=== PATIENT | female | born 1995 | race Caucasian/White ===

== ENCOUNTER 2017-03-28 23:18 | Emergency (ER) | payer BC ==
[2017-03-29 00:26] LABS: Urine Bacteria Absent (Absent); Urine Bilirubin 1+ (Negative); Urine Glucose Negative (Negative); Urine Nitrite Negative (Negative)
[2017-03-29] MEDS ORDERED: Ketorolac INJ* 30 MG/ML 1 ML VIAL IV PUSH ONE (01:47)
[2017-03-29] MEDS ORDERED: NS 0.9% 1000 ML* 1,000 ML IV ONE (01:48)
[2017-03-29] MEDS ORDERED: Ondansetron INJ* 2 MG/ML VIAL IV ONE (01:48)
[2017-03-29 02:23] LABS: Hematocrit 37 % (35-47); Hemoglobin 12.9 g/dl (12.0-16.0); Mean Corpuscular HGB Conc 34 g/dl (31-36); Mean Corpuscular Hemoglobin 31 pg (27-31); Mean Corpuscular Volume 90 fL (80-97); Mean Platelet Volume 9 um3 (7.4-10.4); Red Blood Count 4.14 10^6/ul (4.0-5.4); Red Cell Distribution Width 12 % (10.5-15); White Blood Count 8.9 10^3/ul (3.5-10.8)
[2017-03-29 02:35] LABS: ALT 9 U/L (7-52); AST 15 U/L (13-39); Albumin 4.2 g/dL (3.2-5.2); Alkaline Phosphatase 46 U/L (34-104); Anion Gap 8 mmol/L (2-11); BUN/Creatinine Ratio 11.7 (8-20); Blood Urea Nitrogen 16 mg/dL (6-24); CO2 Carbon Dioxide 25 mmol/L (22-32); Calcium 9.7 mg/dL (8.6-10.3); Chloride 102 mmol/L (101-111); EGFR African American 62.6 (>60); EGFR Non-African American 48.7 (>60); Globulin 2.7 g/dL (2-4); Glucose 100 mg/dL (70-100); Lipase 28 U/L (11.0-82.0); Potassium 3.5 mmol/L (3.5-5.0); Sodium 135 mmol/L (133-145); Total Protein 6.9 g/dL (6.4-8.9)
--- NOTE | 2017-03-29 02:52 | ED ---
GI/ HPI - HPI Summary HPI Summary: 22F presents with right sided flank pain for a month. She was told has uti but then it was found that she didn't. She was told has bladder stone and kidney stone. the pain has becomes worst. She admits to increase nausea. She has been using tyenlol, ibuprofen and flomax without relief. She denies any d/v/c. She denies any dysuria, urgency or frequency. She denies any fever. She has follow up with urology. she was suppose to have bladder scan tomorrow. She denies any previous abdominal surgeries. She states had CT last week. She states also noticed blood when whipped today on toilet paper that has never happened before. - History of Current Complaint Chief Complaint: EDAbdPain Time Seen by Provider: 03/29/17 01:35 Stated Complaint: NAUSEA/VOMITING/ABD PAIN/BLOOD IN STOOL Pain Intensity: 10 - Allergy/Home Medications Allergies/Adverse Reactions: Allergies Allergy/AdvReac Type Severity Reaction Status Date / Time No Known Allergies Allergy Verified 03/28/17 23:35 PMH/Surg Hx/FS Hx/Imm Hx Endocrine/Hematology History: Denies: Hx Anticoagulant Therapy, Hx Diabetes Cardiovascular History: Denies: Hx Hypertension Infectious Disease History: No Infectious Disease History: Denies: Traveled Outside the [place] in Last 30 Days - Family History Known Family History: Positive: Hypertension - Social History Alcohol Use: Occasionally Substance Use Type: Reports: None Smoking Status (MU): Never Smoked Tobacco Review of Systems Negative: Fever Negative: Chest Pain Negative: Shortness Of Breath Positive: Abdominal Pain, Nausea. Negative: Vomiting Positive: flank pain All Other Systems Reviewed And Are Negative: Yes Physical Exam Triage Information Reviewed: Yes Vital Signs On Initial Exam: Initial Vitals Temp Pulse Resp BP Pulse Ox 98.2 F 81 16 122/66 100 03/28/17 23:25 03/28/17 23:25 03/28/17 23:25 03/28/17 23:25 03/28/17 23:25 Vital Signs Reviewed: Yes Appearance: Positive: Pain Distress Skin: Positive: Warm, Dry Head/Face: Positive: Normal Head/Face Inspection Eyes: Positive: Normal, EOMI, MARITZA, Conjunctiva Clear ENT: Positive: Normal ENT inspection, Pharynx normal, TMs normal Respiratory/Lung Sounds: Positive: Clear to Auscultation, Breath Sounds Present Cardiovascular: Positive: Normal, RRR Abdomen Description: Positive: Soft, CVA Tenderness (R), Other: - tenderness right abdomen Bowel Sounds: Positive: Present Musculoskeletal: Positive: Normal Neurological: Positive: Normal Psychiatric: Positive: Normal - [place] Coma Scale Coma Scale Total: 15 Diagnostics - Vital Signs Vital Signs Temp Pulse Resp BP Pulse Ox 03/29/17 01:15 98.7 F 104 16 133/79 100 03/28/17 23:25 98.2 F 81 16 122/66 100 - Laboratory Lab Results: Lab Results 03/28/17 03/29/17 03/29/17 Range/Units 23:58 01:57 01:57 WBC 8.9 (3.5-10.8) 10^3/ul RBC 4.14 (4.0-5.4) 10^6/ul Hgb 12.9 (12.0-16.0) g/dl Hct 37 (35-47) % MCV 90 (80-97) fL MCH 31 (27-31) pg MCHC 34 (31-36) g/dl RDW 12 (10.5-15) % Plt Count 243 (150-450) 10^3/ul MPV 9 (7.4-10.4) um3 Neut % (Auto) 52.3 (38-83) % Lymph % (Auto) 39.2 (25-47) % [place] % (Auto) 6.7 (1-9) % Eos % (Auto) 1.3 (0-6) % Baso % (Auto) 0.5 (0-2) % Absolute Neuts (auto) 4.7 (1.5-7.7) 10^3/ul Absolute Lymphs (auto) 3.5 (1.0-4.8) 10^3/ul Absolute Monos (auto) 0.6 (0-0.8) 10^3/ul Absolute Eos (auto) 0.1 (0-0.6) 10^3/ul Absolute Basos (auto) 0 (0-0.2) 10^3/ul Absolute Nucleated RBC 0 10^3/ul Nucleated RBC % 0 INR (Anticoag Therapy) (0.89-1.11) APTT (26.0-36.3) seconds Sodium 135 (133-145) mmol/L Potassium 3.5 (3.5-5.0) mmol/L Chloride 102 (101-111) mmol/L Carbon Dioxide 25 (22-32) mmol/L Anion Gap 8 (2-11) mmol/L BUN 16 (6-24) mg/dL Creatinine 1.37 H (0.51-0.95) mg/dL Est GFR ( Amer) 62.6 (>60) Est GFR (Non-Af Amer) 48.7 (>60) BUN/Creatinine Ratio 11.7 (8-20) Glucose 100 (70-100) mg/dL Calcium 9.7 (8.6-10.3) mg/dL Total Bilirubin 0.70 (0.2-1.0) mg/dL AST 15 (13-39) U/L ALT 9 (7-52) U/L Alkaline Phosphatase 46 (34-104) U/L C-React Prot High Sens 1.61 mg/L Total Protein 6.9 (6.4-8.9) g/dL Albumin 4.2 (3.2-5.2) g/dL Globulin 2.7 (2-4) g/dL Albumin/Globulin Ratio 1.6 (1-3) Lipase 28 (11.0-82.0) U/L Beta HCG, Quant < 0.60 mIU/mL Urine Color Yellow Urine Appearance Cloudy Urine pH 5.0 (5-9) Ur Specific [place] 1.042 H (1.010-1.030) Urine Protein 1+(30 mg/dl) H (Negative) Urine Ketones Trace H (Negative) Urine Blood Negative (Negative) Urine Nitrate Negative (Negative) Urine Bilirubin 1+ H (Negative) Urine Urobilinogen Negative (Negative) Ur Leukocyte Esterase Negative (Negative) Urine WBC (Auto) Trace(0-5/hpf) (Absent) Urine RBC (Auto) Trace(0-2/hpf) (Absent) Ur Squamous Epith Cells Present H (Absent) Calcium Oxalate Crystal Present H (Absent) Urine Bacteria Absent (Absent) Urine Glucose Negative (Negative) 03/29/17 Range/Units 01:57 WBC (3.5-10.8) 10^3/ul RBC (4.0-5.4) 10^6/ul Hgb (12.0-16.0) g/dl Hct (35-47) % MCV (80-97) fL MCH (27-31) pg MCHC (31-36) g/dl RDW (10.5-15) % Plt Count (150-450) 10^3/ul MPV (7.4-10.4) um3 Neut % (Auto) (38-83) % Lymph % (Auto) (25-47) % [place] % (Auto) (1-9) % Eos % (Auto) (0-6) % Baso % (Auto) (0-2) % Absolute Neuts (auto) (1.5-7.7) 10^3/ul Absolute Lymphs (auto) (1.0-4.8) 10^3/ul Absolute Monos (auto) (0-0.8) 10^3/ul Absolute Eos (auto) (0-0.6) 10^3/ul Absolute Basos (auto) (0-0.2) 10^3/ul Absolute Nucleated RBC 10^3/ul Nucleated RBC % INR (Anticoag Therapy) 0.82 L (0.89-1.11) APTT 26.9 (26.0-36.3) seconds Sodium (133-145) mmol/L Potassium (3.5-5.0) mmol/L Chloride (101-111) mmol/L Carbon Dioxide (22-32) mmol/L Anion Gap (2-11) mmol/L BUN (6-24) mg/dL Creatinine (0.51-0.95) mg/dL Est GFR ( Amer) (>60) Est GFR (Non-Af Amer) (>60) BUN/Creatinine Ratio (8-20) Glucose (70-100) mg/dL Calcium (8.6-10.3) mg/dL Total Bilirubin (0.2-1.0) mg/dL AST (13-39) U/L ALT (7-52) U/L Alkaline Phosphatase (34-104) U/L C-React Prot High Sens mg/L Total Protein (6.4-8.9) g/dL Albumin (3.2-5.2) g/dL Globulin (2-4) g/dL Albumin/Globulin Ratio (1-3) Lipase (11.0-82.0) U/L Beta HCG, Quant mIU/mL Urine Color Urine Appearance Urine pH (5-9) Ur Specific [place] (1.010-1.030) Urine Protein (Negative) Urine Ketones (Negative) Urine Blood (Negative) Urine Nitrate (Negative) Urine Bilirubin (Negative) Urine Urobilinogen (Negative) Ur Leukocyte Esterase (Negative) Urine WBC (Auto) (Absent) Urine RBC (Auto) (Absent) Ur Squamous Epith Cells (Absent) Calcium Oxalate Crystal (Absent) Urine Bacteria (Absent) Urine Glucose (Negative) Result Diagrams: 03/29/17 01:57 03/29/17 01:57 Lab Statement: Any lab studies that have been ordered have been reviewed, and results considered in the medical decision making process. - CT abd CT Interpretation: Positive (See Comments) - mild right hydronephrosis secondary to 3mm distal right uerteral stone just adjacent to uvj CT Interpretation Completed By: Radiologist FILI Course/Dx - Course Course Of Treatment: 22F presents with right sided flank pain for a month. She was told has uti but then it was found that she didn't. She was told has bladder stone and kidney stone. the pain has becomes worst. She admits to increase nausea. She has been using tyenlol, ibuprofen and flomax without relief. She denies any d/v/c. She denies any dysuria, urgency or frequency. She denies any fever. She has follow up with urology. she was suppose to have bladder scan tomorrow. She denies any previous abdominal surgeries. She states had CT last week. She states also noticed blood when whipped today on toilet paper that has never happened before. on exam pos CVA tenderness right. tender right side abdomen. discussed will get CT which shows 3mm stone at uvj. no infection in urine. will add pain medication on and nausea medication. patient understand and agrees with plan. - Diagnoses Differential Diagnoses - Female: Pyelonephritis, Urinary Tract Infection, Ureteral Calculi Provider Diagnoses: Ureteral stone Discharge - Discharge Plan Condition: Good Disposition: HOME Prescriptions: Ondansetron ODT TAB* [Zofran 4 MG Odt TAB*] 4 mg PO Q6H PRN #20 tab.odt PRN Reason: Nausea oxyCODONE/Acetamin 5/325 MG* [Percocet 5/325 TAB*] 1 tab PO Q6H PRN #12 tab MDD 4 PRN Reason: Pain Patient Education Materials: Ureteral Stones (ED) Referrals: Ann Bettencourt MD [Primary Care Provider] - Kiamni Ferreira MD [Medical Doctor] - Additional Instructions: Take ibuprofen every 6 hours and narcotic as needed every 6 hours Take Zofran every 6 hours for nausea as needed Take Flomax daily, make sure stand up slowly Follow up with urology Strain urine until collect stone Return to ED if develop fever, or any new or worsening symptoms
[2017-03-29] MEDS ORDERED: Ondansetron ODT TAB* 4 MG PO ONE (03:29)
[2017-03-29 05:38] VITALS: BP 112/64
--- NOTE | 2017-03-29 08:10 | RAD ---
Indication: Right flank pain. CT of the abdomen and pelvis was performed without oral or IV contrast administration. Coronal and sagittal reconstructed images were obtained. The lung bases demonstrate no pleural fluid, nodules or masses. Heart is normal size without evidence of pericardial effusion. The liver is normal in size. No focal lesions or intrahepatic ductal dilatation is noted. The spleen is normal in size. The pancreas demonstrates no mass or pancreatic duct dilatation. The gallbladder demonstrates no calcified gallstones, pericholecystic fluid or wall thickening. No adrenal lesions are noted. There is mild to moderate right hydronephrosis and mild hydroureter. There is a 3 mm calculus at the distal right ureter just above the ureterovesicular junction. Additional nonobstructing calculi measuring 1 mm is noted in the midportion of the right kidney. The left kidney shows no hydronephrosis. Aorta and inferior vena cava are unremarkable. No dilated loops of bowel are noted. The colon is filled with stool. The bony structures are grossly unremarkable. The appendix is visualized and is normal. IMPRESSION: Right hydronephrosis with hydroureter. Small calcification measuring 3 mm just proximal to the right ureterovesicular junction. Remainder of the abdomen and pelvis is unremarkable.
== END 2017-03-29 05:20 | disposition home or self-care (01) ==
LOC: ED 23:18
DX: N20.1 Calculus of ureter (principal); R10.84 Generalized abdominal pain
CPT/HCPCS: 36415; 74176; 80053; 81003; 81015; 83690; 84702; 85025; 85610; 85730; 86141; 96374; 96375; 99283; A9270-GY; J1885; J2405